=== PATIENT | male | born 1995 | race African-American/Black ===

== ENCOUNTER → 2016-06-17 | Outpatient (REF) | payer OTHER, MEDICAID ==
[2016-06-17 19:46] LABS: MEAN CORPUSCULAR HEMOGLOBIN 32.5 pg (27.0-33.0); MEAN CORPUSCULAR HGB CONC 33.2 g/dl (32.0-36.5); MEAN CORPUSCULAR VOLUME 97.9 fl (80.0-96.0); RED CELL DISTRIBUTION WIDTH 11.7 % (11.5-14.5); WHITE BLOOD COUNT 5.2 K/mm3 (4.0-10.0)
[2016-06-17 20:14] LABS: ANION GAP 10 MEQ/L (8-16); BLOOD UREA NITROGEN 13 MG/DL (7-18); CALCIUM LEVEL 8.3 MG/DL (8.5-10.1); CARBON DIOXIDE LEVEL 27 MEQ/L (21-32); CHLORIDE LEVEL 102 MEQ/L (98-107); CHOLESTEROL LEVEL 142 MG/DL (<200); CREATININE FOR GFR 1.09 MG/DL (0.70-1.30); GLUCOSE, FASTING 89 MG/DL (70-105); POTASSIUM SERUM 4.1 MEQ/L (3.5-5.1); SODIUM LEVEL 139 MEQ/L (136-145); TRIGLYCERIDES LEVEL 76 MG/DL (<150)
== END ==
LOC: M LAB REF 17:00
PROVIDERS: ATTEND Nurse Practitioner Pediatrics
DX: Z00.01 Encounter for general adult medical examination with abnormal findings (principal); H53.10 Unspecified subjective visual disturbances

== ENCOUNTER → 2017-04-14 | Outpatient (REF) | payer MEDICAID ==
[2017-04-14 16:52] LABS: APPEARANCE, URINE HAZY (CLEAR); BACTERIA, URINE AUTO NEGATIVE (NEGATIVE); BILIRUBIN, URINE AUTO NEGATIVE (NEGATIVE); BLOOD, URINE BLOOD NEGATIVE (NEGATIVE); COLOR, URINE YELLOW (YELLOW); GLUCOSE, URINE (UA) AUTO NEGATIVE (NEGATIVE); KETONE, URINE AUTO NEGATIVE (NEGATIVE); LEUKOCYTE ESTERASE, URINE AUTO TRACE (NEGATIVE); MUCUS, URINE MODERATE (NEGATIVE); NITRITE, URINE AUTO NEGATIVE (NEGATIVE); PROTEIN, URINE AUTO 2+ mg/dL (NEGATIVE); RBC, URINE AUTO 2 /HPF (0-3); SPECIFIC GRAVITY URINE AUTO 1.017 (1.002-1.035); SQUAMOUS EPITHELIAL CELL UR AU 0 /HPF (0-6); WBC, URINE AUTO 34 /HPF (0-3)
[2017-04-14 18:20] LABS: CHLAMYDIA DNA AMPLIFICATION POSITIVE (NEGATIVE); GC DNA AMPLIFICATION NEGATIVE (NEGATIVE)
== END ==
LOC: M LAB REF 16:29
DX: Z78.9 Other specified health status (principal)

== ENCOUNTER → 2019-10-31 | Outpatient (CLI) | payer SELFPAY | LOC: M LABSMTC 13:16 | PROVIDERS: ATTEND Family Medicine | DX: Z11.59 Encounter for screening for other viral diseases (principal) ==

== ENCOUNTER → 2021-03-10 | Outpatient (REF) | LOC: M LABSMTC 09:11 | PROVIDERS: ATTEND Pediatrics | DX: Z11.52 Encounter for screening for COVID-19 (principal) ==

== ENCOUNTER 2021-05-09 08:11 | Emergency (ER) | payer OTHER, SELFPAY ==
[~2021-05-09] VITALS: Ht 180.3 cm; Wt 76.9 kg
[2021-05-09] MEDS ORDERED: ACET500P3 PO (08:20)
[2021-05-09] MEDS ORDERED: NS 1,000 ML IV ONE (08:40)
[2021-05-09] MEDS ORDERED: KETOROLAC 30 MG/ML 1ML VIAL IV ONE (09:00)
[2021-05-09 09:06] LABS: BASO % 0.1 % (0.0-1.0); EOS # 0.2 10^3/uL (0.0-0.5); EOS % 1.5 % (0.0-3.0); HEMOGLOBIN 13.6 g/dl (13.5-17.5); LYMPH # 1.4 10^3/uL (1.5-5.0); LYMPH % 12.7 % (24.0-44.0); MEAN CORPUSCULAR HEMOGLOBIN 31.7 pg (27.0-33.0); MEAN CORPUSCULAR VOLUME 93.2 fl (80.0-96.0); MONO % 9.4 % (2.0-8.0); NEUTROPHILS # 8.1 10^3/uL (1.5-8.5); PLATELET COUNT, AUTOMATED 252 10^3/uL (150-450); RED BLOOD COUNT 4.29 10^6/uL (4.30-6.10); WHITE BLOOD COUNT 10.6 10^3/uL (4.0-10.0)
[2021-05-09 09:32] LABS: ALBUMIN 4.1 GM/DL (3.2-5.2); ALT/SGPT 29 U/L (12-78); BILIRUBIN,DIRECT 0.2 MG/DL (0.0-0.2); BILIRUBIN,TOTAL 0.7 MG/DL (0.2-1.0); BLOOD UREA NITROGEN 15 MG/DL (7-18); CALCIUM LEVEL 9.4 MG/DL (8.5-10.1); CARBON DIOXIDE LEVEL 31 MEQ/L (21-32); CHLORIDE LEVEL 104 MEQ/L (98-107); CREATININE FOR GFR 1.04 MG/DL (0.70-1.30); GLOMERULAR FILTRATION RATE > 60.0 (>60); GLUCOSE, FASTING 110 MG/DL (70-100); LIPASE 62 U/L (73-393); POTASSIUM SERUM 4.3 MEQ/L (3.5-5.1); SODIUM LEVEL 138 MEQ/L (136-145); TOTAL PROTEIN 8.3 GM/DL (6.4-8.2)
[2021-05-09] MEDS ORDERED: ISOVUE-370 76% 100ML VIAL As Ordered ONE (09:32)
[2021-05-09] MEDS ORDERED: cefTRIAXone SOD 250MG VIAL (J0696 PER 250MG) IM ONE (10:10)
[2021-05-09] MEDS ORDERED: DOXYCYCLINE HYCLATE 100MG TABLET PO ONE (10:10)
[2021-05-09] MEDS ORDERED: LIDOCAINE 1% SDV 5ML VIAL DILUENT ONE (10:10)
[2021-05-09 10:38] LABS: GC DNA AMPLIFICATION NEGATIVE (NEGATIVE)
[2021-05-09] MEDS ORDERED: DOXY-443 PO (10:54)
[2021-05-09] MEDS ORDERED: KETO10TAB PO (10:54)
[2021-05-09 13:01] VITALS: BP 129/73
[2021-05-09 13:44] LABS: HIV 1&2 SCREEN CENTAUR NEGATIVE (NEGATIVE)
[2021-05-10] MEDS ORDERED: KETO10TAB PO (23:54)
[2021-05-10] MEDS ORDERED: DOXY-443 PO (23:54)
== END 2021-05-09 13:17 | disposition home or self-care (01) ==
LOC: M ED 08:11
DX: N45.1 Epididymitis (principal); N45.2 Orchitis
CPT/HCPCS: 74177; 76870; 80047; 80048; 80076; 81001; 83605; 83690; 85025; 86780; 87088; 87186; 87389; 87810; 87850; 93041; 93976; 96372; 96374; 99284; J0696; J1885; Q9967

== ENCOUNTER 2021-05-10 20:17 | Inpatient (IN) | payer OTHER ==
[~2021-05-10] VITALS: Ht 180.3 cm; Wt 76.2 kg
[~2021-05-10 20:17] MED LIST: ACET500P3 PO; DOXY-443 PO; KETO10TAB PO
[2021-05-10 21:38] LABS: BASO % 0.1 % (0.0-1.0); EOS # 0.1 10^3/uL (0.0-0.5); EOS % 0.5 % (0.0-3.0); HEMATOCRIT 36.5 % (42.0-52.0); HEMOGLOBIN 12.5 g/dl (13.5-17.5); LYMPH # 2.2 10^3/uL (1.5-5.0); LYMPH % 16.5 % (24.0-44.0); MEAN CORPUSCULAR HEMOGLOBIN 32.2 pg (27.0-33.0); MEAN CORPUSCULAR HGB CONC 34.2 g/dl (32.0-36.5); MEAN CORPUSCULAR VOLUME 94.1 fl (80.0-96.0); MONO # 1.1 10^3/uL (0.0-0.8); MONO % 8.2 % (2.0-8.0); NEUTROPHILS # 10.1 10^3/uL (1.5-8.5); NEUTROPHILS % 74.3 % (36.0-66.0); PLATELET COUNT, AUTOMATED 218 10^3/uL (150-450); RED BLOOD COUNT 3.88 10^6/uL (4.30-6.10); WHITE BLOOD COUNT 13.5 10^3/uL (4.0-10.0)
[2021-05-10 22:14] LABS: ALBUMIN 3.7 GM/DL (3.2-5.2); ALT/SGPT 22 U/L (12-78); BILIRUBIN,DIRECT 0.4 MG/DL (0.0-0.2); BILIRUBIN,TOTAL 1.4 MG/DL (0.2-1.0); BLOOD UREA NITROGEN 13 MG/DL (7-18); CALCIUM LEVEL 8.9 MG/DL (8.5-10.1); CARBON DIOXIDE LEVEL 26 MEQ/L (21-32); CHLORIDE LEVEL 105 MEQ/L (98-107); CREATININE FOR GFR 1.01 MG/DL (0.70-1.30); GLOMERULAR FILTRATION RATE > 60.0 (>60); GLUCOSE, FASTING 99 MG/DL (70-100); SODIUM LEVEL 137 MEQ/L (136-145); TOTAL PROTEIN 7.8 GM/DL (6.4-8.2)
[2021-05-10] MEDS ORDERED: PIPERACILLIN/TAZOBACTAM SOD 3.375 GM in D5W MINI-BAG PLUS 50 ML IV ONE (23:25)
[2021-05-10] MEDS ORDERED: NS 1,000 ML IV ONE (23:45)
[2021-05-10] MEDS ORDERED: DOXY-443 PO (23:54)
[2021-05-10] MEDS ORDERED: KETO10TAB PO (23:54)
[2021-05-10] MEDS ORDERED: HOME MED LIST COMPLETE! XX SCH (23:55)
[2021-05-10] MEDS ORDERED: KETOROLAC 30 MG/ML 1ML VIAL IV PRN (23:55)
[2021-05-11 00:48] LABS: RSV AMPLIFICATION NEGATIVE (NEGATIVE)
[2021-05-11] MEDS: ACETAMINOPHEN TAB 650MG DOSE (2X325MG) PO PRN ×2 (01:46→10:13)
[2021-05-11 02:00] VITALS: BP 121/62
[2021-05-11] MEDS ORDERED: ALBUTEROL 90 MCG/ACT 8GM HFA INHALER INH PRN (03:30)
[2021-05-11] MEDS: PIPERACILLIN/TAZOBACTAM SOD 4.5 GM in D5W MINI-BAG PLUS 50 ML IV SCH ×3 (06:08→18:13)
[2021-05-11 12:59] VITALS: BP 122/60
[2021-05-11] MEDS: HEPARIN SOD (PORCINE) 5000UNITS/ML 1ML VIAL/SYRINGE SQ SCH ×2 (13:57→21:03)
[2021-05-11 14:00] VITALS: BP 123/62
[2021-05-11 21:56] VITALS: BP 120/62
[2021-05-12] MEDS: PIPERACILLIN/TAZOBACTAM SOD 4.5 GM in D5W MINI-BAG PLUS 50 ML IV SCH ×3 (00:07→12:00)
[2021-05-12 06:00] VITALS: BP 106/51
[2021-05-12] MEDS: HEPARIN SOD (PORCINE) 5000UNITS/ML 1ML VIAL/SYRINGE SQ SCH (06:00)
[2021-05-12 07:05] LABS: BASO % 0.1 % (0.0-1.0); EOS # 0.2 10^3/uL (0.0-0.5); EOS % 3.2 % (0.0-3.0); HEMATOCRIT 36.2 % (42.0-52.0); HEMOGLOBIN 12.2 g/dl (13.5-17.5); LYMPH # 1.9 10^3/uL (1.5-5.0); LYMPH % 27.8 % (24.0-44.0); MEAN CORPUSCULAR HEMOGLOBIN 31.8 pg (27.0-33.0); MEAN CORPUSCULAR HGB CONC 33.7 g/dl (32.0-36.5); MEAN CORPUSCULAR VOLUME 94.3 fl (80.0-96.0); MONO # 0.8 10^3/uL (0.0-0.8); MONO % 10.9 % (2.0-8.0); NEUTROPHILS % 57.7 % (36.0-66.0); PLATELET COUNT, AUTOMATED 209 10^3/uL (150-450); RED BLOOD COUNT 3.84 10^6/uL (4.30-6.10)
[2021-05-12 07:29] LABS: BLOOD UREA NITROGEN 8 MG/DL (7-18); CALCIUM LEVEL 8.9 MG/DL (8.5-10.1); CARBON DIOXIDE LEVEL 27 MEQ/L (21-32); CHLORIDE LEVEL 105 MEQ/L (98-107); CREATININE FOR GFR 0.96 MG/DL (0.70-1.30); GLOMERULAR FILTRATION RATE > 60.0 (>60); GLUCOSE, FASTING 89 MG/DL (70-100); PHOSPHORUS LEVEL 3.5 MG/DL (2.5-4.9); POTASSIUM SERUM 4.3 MEQ/L (3.5-5.1); SODIUM LEVEL 136 MEQ/L (136-145)
[2021-05-12] MEDS ORDERED: LEVO500T4 PO (08:36)
== END 2021-05-12 13:45 | disposition home or self-care (01) | DRG 501 ==
LOC: M ED 20:17 → M ED INP 05-11 00:15 → M MS5PR 05-11 02:04
PROVIDERS: ADMIT Internal Medicine; ATTEND Internal Medicine
DX: N45.3 Epididymo-orchitis (principal); Z20.822 Contact with and (suspected) exposure to COVID-19

== ENCOUNTER 2022-04-05 05:22 | Emergency (ER) | payer OTHER, SELFPAY ==
[~2022-04-05] VITALS: Ht 180.3 cm; Wt 75.6 kg
[~2022-04-05 05:22] MED LIST changes: +LEVO1TAB39 PO
[2022-04-05 05:24] VITALS: BP 128/81
== END 2022-04-05 08:32 | disposition left against medical advice (07) ==
LOC: M ED 05:22
DX: Z53.21 Procedure and treatment not carried out due to patient leaving prior to being seen by health care provider (principal)

== ENCOUNTER → 2023-10-27 | Outpatient (REF) | payer OTHER ==
[~2023-10-27] MED LIST changes: +BACT800T5 PO; +DOXY-323 PO; -DOXY-443 PO
[2023-10-27 19:17] LABS: BASO % 0.4 % (0.0-1.0); EOS # 0.3 10^3/uL (0.0-0.5); EOS % 5.4 % (0.0-3.0); HEMATOCRIT 33.7 % (42.0-52.0); HEMOGLOBIN 10.7 g/dl (13.5-17.5); LYMPH # 1.6 10^3/uL (1.5-5.0); LYMPH % 31.1 % (24.0-44.0); MEAN CORPUSCULAR HEMOGLOBIN 31.5 pg (27.0-33.0); MEAN CORPUSCULAR HGB CONC 31.8 g/dl (32.0-36.5); MEAN CORPUSCULAR VOLUME 99.1 fl (80.0-96.0); MONO # 0.5 10^3/uL (0.0-0.8); MONO % 9.1 % (2.0-8.0); NEUTROPHILS # 2.7 10^3/uL (1.5-8.5); NEUTROPHILS % 52.3 % (36.0-66.0); PLATELET COUNT, AUTOMATED 627 10^3/uL (150-450); WHITE BLOOD COUNT 5.2 10^3/uL (4.0-10.0)
[2023-10-27 19:44] LABS: CPK CREATINE PHOSPHOKINASE 167 U/L (46-171)
[2023-10-27 19:45] LABS: BLOOD UREA NITROGEN 12 MG/DL (9-23); CALCIUM LEVEL 9.4 MG/DL (8.5-10.1); CARBON DIOXIDE LEVEL 29 MMOL/L (20-31); CHLORIDE LEVEL 104 MMOL/L (98-107); GLOMERULAR FILTRATION RATE > 60.0 (>60); GLUCOSE, FASTING 79 MG/DL (60-100); IRON (FE) 60 UG/DL (65-175); PERCENT SATURATION 18.9 % (19.7-50.0); POTASSIUM SERUM 5.1 MMOL/L (3.5-5.1); SODIUM LEVEL 138 MMOL/L (136-145); TOTAL IRON BINDING CAPACITY 318 UG/DL (250-425)
[2023-10-27 19:46] LABS: FERRITIN 375.6 NG/ML (10.5-307.3)
[2023-10-27 19:53] LABS: SICKLE CELL SCREEN NEGATIVE (NEGATIVE)
== END ==
LOC: M LAB REF 16:36
PROVIDERS: ATTEND Physician Assistant
DX: D64.9 Anemia, unspecified (principal); M62.82 Rhabdomyolysis

== ENCOUNTER → 2023-10-27 | Outpatient (REF) | payer MEDICAID, OTHER ==
[2023-10-27 12:22] LABS: APPEARANCE, URINE HAZY (CLEAR); BACTERIA, URINE AUTO 1+ (NEGATIVE); BILIRUBIN, URINE AUTO NEGATIVE (NEGATIVE); BLOOD, URINE BLOOD 1+ (NEGATIVE); COLOR, URINE YELLOW (YELLOW); GLUCOSE, URINE (UA) AUTO NEGATIVE (NEGATIVE); KETONE, URINE AUTO NEGATIVE (NEGATIVE); LEUKOCYTE ESTERASE, URINE AUTO 2+ (NEGATIVE); MUCUS, URINE SMALL (NEGATIVE); NITRITE, URINE AUTO NEGATIVE (NEGATIVE); PROTEIN, URINE AUTO 1+ mg/dL (NEGATIVE); RBC, URINE AUTO 8 /HPF (0-3); SPECIFIC GRAVITY URINE AUTO 1.014 (1.002-1.035); SQUAMOUS EPITHELIAL CELL UR AU 0 /HPF (0-6); UROBILINOGEN, URINE AUTO 0.2 mg/dL (0.0-2.0); WBC, URINE AUTO 46 /HPF (0-3)
== END ==
LOC: M LAB REF 11:22
PROVIDERS: ATTEND Physician Assistant
DX: M62.82 Rhabdomyolysis (principal)

== ENCOUNTER 2023-11-06 09:41 | Emergency (ER) | payer MEDICAID, OTHER ==
[~2023-11-06] VITALS: Ht 180.3 cm; Wt 76.7 kg
[~2023-11-06 09:41] MED LIST changes: -BACT800T5 PO
[2023-11-06 10:55] LABS: BASO % 0.1 % (0.0-1.0); EOS % 0.1 % (0.0-3.0); HEMATOCRIT 36.1 % (42.0-52.0); HEMOGLOBIN 11.9 g/dl (13.5-17.5); LYMPH # 0.7 10^3/uL (1.5-5.0); LYMPH % 5.9 % (24.0-44.0); MEAN CORPUSCULAR HEMOGLOBIN 32.5 pg (27.0-33.0); MEAN CORPUSCULAR VOLUME 98.6 fl (80.0-96.0); MONO # 0.9 10^3/uL (0.0-0.8); MONO % 6.9 % (2.0-8.0); NEUTROPHILS # 10.9 10^3/uL (1.5-8.5); NEUTROPHILS % 86.6 % (36.0-66.0); PLATELET COUNT, AUTOMATED 331 10^3/uL (150-450); RED BLOOD COUNT 3.66 10^6/uL (4.30-6.10); WHITE BLOOD COUNT 12.6 10^3/uL (4.0-10.0)
[2023-11-06 11:00] LABS: APPEARANCE, URINE CLOUDY (CLEAR); BACTERIA, URINE AUTO 2+ (NEGATIVE); BILIRUBIN, URINE AUTO NEGATIVE (NEGATIVE); BLOOD, URINE BLOOD 2+ (NEGATIVE); COLOR, URINE YELLOW (YELLOW); GLUCOSE, URINE (UA) AUTO NEGATIVE (NEGATIVE); KETONE, URINE AUTO NEGATIVE (NEGATIVE); LEUKOCYTE ESTERASE, URINE AUTO 3+ (NEGATIVE); MUCUS, URINE SMALL (NEGATIVE); NITRITE, URINE AUTO POSITIVE (NEGATIVE); PROTEIN, URINE AUTO 1+ mg/dL (NEGATIVE); RBC, URINE AUTO 50 /HPF (0-3); SPECIFIC GRAVITY URINE AUTO 1.016 (1.002-1.035); SQUAMOUS EPITHELIAL CELL UR AU 1 /HPF (0-6); UROBILINOGEN, URINE AUTO 0.2 mg/dL (0.0-2.0); WBC, URINE AUTO TNTC /HPF (0-3)
[2023-11-06 11:26] LABS: ALBUMIN 3.8 G/DL (3.2-5.2); ALKALINE PHOSPHATASE 74 U/L (46-116); ALT/SGPT 28 U/L (7.0-40); AST/SGOT 28 U/L (<34); BILIRUBIN,TOTAL 0.9 MG/DL (0.3-1.2); BLOOD UREA NITROGEN 14 MG/DL (9-23); CALCIUM LEVEL 10.1 MG/DL (8.5-10.1); CARBON DIOXIDE LEVEL 26 MMOL/L (20-31); CHLORIDE LEVEL 104 MMOL/L (98-107); CPK CREATINE PHOSPHOKINASE 212 U/L (46-171); CREATININE FOR GFR 1.15 MG/DL (0.70-1.30); GLOMERULAR FILTRATION RATE > 60.0 (>60); GLUCOSE, FASTING 92 MG/DL (60-100); POTASSIUM SERUM 4.2 MMOL/L (3.5-5.1); SODIUM LEVEL 136 MMOL/L (136-145); TOTAL PROTEIN 8.5 G/DL (5.7-8.2)
[2023-11-06 12:33] LABS: Trichomonas vaginalis (AMP) NOT DETECTED (NEGATIVE)
[2023-11-06] MEDS: NS 1,000 ML IV ONE (12:50)
[2023-11-06] MEDS: cefTRIAXone SOD 1 GM in D5W MINI-BAG PLUS 50 ML IV ONE (12:50)
[2023-11-06 12:58] LABS: GC DNA AMPLIFICATION NEGATIVE (NEGATIVE)
[2023-11-06] MEDS ORDERED: ISOVUE-370 76% 100ML VIAL As Ordered ONE (13:35)
[2023-11-06] MEDS ORDERED: BACT800T5 PO (14:39)
[2023-11-06 15:08] VITALS: BP 126/70; TEMP 100.4; O2SAT 98
== END 2023-11-06 15:45 | disposition home or self-care (01) ==
LOC: M ED 09:41
DX: N10 Acute pyelonephritis (principal); D64.9 Anemia, unspecified; K46.9 Unspecified abdominal hernia without obstruction or gangrene; J45.909 Unspecified asthma, uncomplicated; Z79.899 Other long term (current) drug therapy
CPT/HCPCS: 74177; 76870; 80053; 81001; 82550; 83605; 85025; 87040; 87088; 87186; 87661; 87810; 87850; 93976; 96360; 96365; 99284; J0696; Q9967

== ENCOUNTER → 2023-11-11 | Outpatient (REF) | payer MEDICAID ==
[~2023-11-11] MED LIST changes: +BACT800T5 PO
[2023-11-11 17:15] LABS: HEMATOCRIT 32.3 % (42.0-52.0); HEMOGLOBIN 10.5 g/dl (13.5-17.5); MEAN CORPUSCULAR HEMOGLOBIN 31.8 pg (27.0-33.0); MEAN CORPUSCULAR HGB CONC 32.5 g/dl (32.0-36.5); MEAN CORPUSCULAR VOLUME 97.9 fl (80.0-96.0); PLATELET COUNT, AUTOMATED 274 10^3/uL (150-450)
[2023-11-11 17:42] LABS: ALBUMIN 3.5 G/DL (3.2-5.2); ALKALINE PHOSPHATASE 66 U/L (46-116); ALT/SGPT 19 U/L (7.0-40); AST/SGOT 30 U/L (<34); BILIRUBIN,TOTAL 0.4 MG/DL (0.3-1.2); BLOOD UREA NITROGEN 15 MG/DL (9-23); CALCIUM LEVEL 9.2 MG/DL (8.5-10.1); CARBON DIOXIDE LEVEL 26 MMOL/L (20-31); CHLORIDE LEVEL 105 MMOL/L (98-107); CPK CREATINE PHOSPHOKINASE 482 U/L (46-171); CREATININE FOR GFR 1.11 MG/DL (0.70-1.30); GLOMERULAR FILTRATION RATE > 60.0 (>60); GLUCOSE, FASTING 88 MG/DL (60-100); POTASSIUM SERUM 4.3 MMOL/L (3.5-5.1); SODIUM LEVEL 138 MMOL/L (136-145); TOTAL PROTEIN 7.9 G/DL (5.7-8.2)
[2023-11-11 17:56] LABS: ATYPICAL LYMPH 7 % (0-5); BASOPHILS 1 % (0-1); LYMPHOCYTES 68 % (16-44); MONOCYTES 6 % (0-5); NEUTROPHILS 18 % (28-66)
[2023-11-11 17:57] LABS: PLATELET ESTIMATE NORMAL (NORMAL)
== END ==
LOC: M LAB REF 16:35
PROVIDERS: ATTEND Nurse Practitioner Family
DX: N17.9 Acute kidney failure, unspecified (principal); D50.9 Iron deficiency anemia, unspecified

== ENCOUNTER → 2023-12-10 | Outpatient (REF) | payer MEDICAID, OTHER ==
[~2023-12-10] MED LIST changes: -DOXY-323 PO; +DOXY-441 PO
[2023-12-10 18:03] LABS: BASO % 0.2 % (0.0-1.0); EOS # 0.2 10^3/uL (0.0-0.5); EOS % 4.1 % (0.0-3.0); HEMATOCRIT 40.5 % (42.0-52.0); HEMOGLOBIN 13.2 g/dl (13.5-17.5); LYMPH % 40.7 % (24.0-44.0); MEAN CORPUSCULAR HEMOGLOBIN 31.7 pg (27.0-33.0); MEAN CORPUSCULAR HGB CONC 32.6 g/dl (32.0-36.5); MEAN CORPUSCULAR VOLUME 97.1 fl (80.0-96.0); MONO # 0.4 10^3/uL (0.0-0.8); MONO % 8.2 % (2.0-8.0); NEUTROPHILS # 2.3 10^3/uL (1.5-8.5); NEUTROPHILS % 46.6 % (36.0-66.0); PLATELET COUNT, AUTOMATED 272 10^3/uL (150-450); RED BLOOD COUNT 4.17 10^6/uL (4.30-6.10); WHITE BLOOD COUNT 4.9 10^3/uL (4.0-10.0)
[2023-12-10 18:46] LABS: BLOOD UREA NITROGEN 19 MG/DL (9-23); CARBON DIOXIDE LEVEL 28 MMOL/L (20-31); CHLORIDE LEVEL 105 MMOL/L (98-107); CPK CREATINE PHOSPHOKINASE 1113 U/L (46-171); CREATININE FOR GFR 1.06 MG/DL (0.70-1.30); GLOMERULAR FILTRATION RATE > 60.0 (>60); GLUCOSE, FASTING 76 MG/DL (60-100); POTASSIUM SERUM 4.7 MMOL/L (3.5-5.1); SODIUM LEVEL 137 MMOL/L (136-145)
== END ==
LOC: M LAB REF 16:24
PROVIDERS: ATTEND Nurse Practitioner Family
DX: D70.9 Neutropenia, unspecified (principal); M62.82 Rhabdomyolysis

== ENCOUNTER → 2023-12-27 | Outpatient (REF) | payer MEDICAID ==
[2023-12-27 18:30] LABS: THYROID STIMULATING HORMONE 0.859 uIU/ML (0.55-4.78)
== END ==
LOC: M LAB REF 17:21
PROVIDERS: ATTEND Nurse Practitioner Family
DX: R74.8 Abnormal levels of other serum enzymes (principal)

== ENCOUNTER → 2024-01-12 | Outpatient (REF) | payer MEDICAID, OTHER | LOC: M SFHCPLAZ 08:03 | PROVIDERS: ATTEND Internal Medicine Hematology | DX: D50.9 Iron deficiency anemia, unspecified (principal); D75.A Glucose-6-phosphate dehydrogenase (G6PD) deficiency without anemia ==

== ENCOUNTER → 2024-01-12 | Outpatient (CLI) | payer MEDICAID, OTHER ==
[2024-01-12 11:16] LABS: BASO % 0.2 % (0.0-1.0); EOS # 0.3 10^3/uL (0.0-0.5); EOS % 5.9 % (0.0-3.0); HEMATOCRIT 40.3 % (42.0-52.0); HEMOGLOBIN 13.3 g/dl (13.5-17.5); LYMPH # 1.8 10^3/uL (1.5-5.0); LYMPH % 42.1 % (24.0-44.0); MEAN CORPUSCULAR HEMOGLOBIN 31.8 pg (27.0-33.0); MEAN CORPUSCULAR VOLUME 96.4 fl (80.0-96.0); MONO # 0.5 10^3/uL (0.0-0.8); MONO % 11.8 % (2.0-8.0); NEUTROPHILS # 1.7 10^3/uL (1.5-8.5); NEUTROPHILS % 39.8 % (36.0-66.0); PLATELET COUNT, AUTOMATED 239 10^3/uL (150-450); RED BLOOD COUNT 4.18 10^6/uL (4.30-6.10); WHITE BLOOD COUNT 4.3 10^3/uL (4.0-10.0)
[2024-01-12 11:42] LABS: FERRITIN 158.3 NG/ML (10.5-307.3)
[2024-01-12 11:43] LABS: PERCENT SATURATION 32.1 % (19.7-50.0)
== END ==
LOC: M PLALAB 08:32
PROVIDERS: ATTEND Internal Medicine Hematology
DX: D50.9 Iron deficiency anemia, unspecified (principal)

== ENCOUNTER 2024-05-26 22:15 | Emergency (ER) | payer MEDICAID, OTHER ==
[~2024-05-26] VITALS: Ht 180.3 cm; Wt 80.0 kg
[2024-05-26] MEDS: ACETAMINOPHEN 325 MG TAB PO ONE (23:54)
[2024-05-27 00:16] VITALS: BP 140/60; TEMP 98.4; O2SAT 98
== END 2024-05-27 01:59 | disposition home or self-care (01) ==
LOC: M ED 22:15
DX: M54.50 Low back pain, unspecified (principal); F17.290 Nicotine dependence, other tobacco product, uncomplicated; Z79.2 Long term (current) use of antibiotics